=== PATIENT | male | born 1940 | race Caucasian/White ===

== ENCOUNTER 2017-01-20 22:27 | Emergency (ER) | payer BC, MEDICARE ==
[~2017-01-20] VITALS: Ht 165.1 cm; Wt 85.9 kg
[~2017-01-20 22:27] MED LIST: ASPI81TA85 PO; CELE1CAP7 PO; COUM1TAB17 PO; FLOM5CAP PO; HYDR25TAB PO; LISI-538 PO; OMEP20CA3 PO; PERC5TAB12 PO; PERCOCET PO; SIMV20TA2 PO; TRAM37.53 PO; TYLE325T5 PO; VITA100072 PO
[2017-01-20] MEDS ORDERED: AMLO25TA PO (22:42)
[2017-01-20] MEDS ORDERED: TRAM37.53 PO (22:42)
[2017-01-20 23:59] LABS: ANION GAP 7 MEQ/L (8-16); BLOOD UREA NITROGEN 33 MG/DL (7-18); CALCIUM LEVEL 8.6 MG/DL (8.8-10.2); CARBON DIOXIDE LEVEL 28 MEQ/L (21-32); CHLORIDE LEVEL 108 MEQ/L (98-107); CREATININE FOR GFR 1.65 MG/DL (0.70-1.30); GLOMERULAR FILTRATION RATE 43.4 (>42); GLUCOSE, FASTING 117 MG/DL (83-110); MAGNESIUM LEVEL 2.2 MG/DL (1.8-2.4); POTASSIUM SERUM 4.2 MEQ/L (3.5-5.1); SODIUM LEVEL 143 MEQ/L (136-145)
[2017-01-21 00:12] LABS: MEAN CORPUSCULAR HEMOGLOBIN 31.5 pg (27.0-33.0); MEAN CORPUSCULAR HGB CONC 33.5 g/dl (32.0-36.5); MEAN CORPUSCULAR VOLUME 93.9 fl (80.0-96.0); PLATELET COUNT, AUTOMATED 221 10^3/uL (150-450); RED CELL DISTRIBUTION WIDTH 12.3 % (11.5-14.5); WHITE BLOOD COUNT 6.9 10^3/uL (4.0-10.0)
[2017-01-21 00:35] VITALS: BP 157/74
--- NOTE | 2017-01-21 02:13 | ECGEPIP ---
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
--- NOTE | 2017-01-21 09:20 | REP ---
Clinical: Chest pain and palpitations . Comparison: 11/07/2015 . Findings: The mediastinum and cardiac silhouette are stable and within normal limits for portable technique. The lung lopez are clear without acute consolidation, effusion, or pneumothorax. Skeletal structures are intact. Impression: No acute cardiopulmonary process appreciated. Signed by Shane Ahumada MD 01/21/2017 08:21 A
== END 2017-01-21 00:42 | disposition home or self-care (01) ==
LOC: M ED 22:27
DX: I49.1 Atrial premature depolarization (principal); N18.3 Chronic kidney disease, stage 3 (moderate); I12.9 Hypertensive chronic kidney disease with stage 1 through stage 4 chronic kidney disease, or unspecified chronic kidney disease; E78.4 Other hyperlipidemia

== ENCOUNTER → 2017-01-27 | Outpatient (REF) | payer BC ==
[~2017-01-27] MED LIST changes: +AMLO25TA PO
== END ==
LOC: M SMT 12:57
PROVIDERS: ATTEND Urology
DX: N40.1 Benign prostatic hyperplasia with lower urinary tract symptoms (principal)

== ENCOUNTER → 2018-06-30 | Outpatient (CLI) | payer MEDICARE ==
[~2018-06-30] MED LIST changes: +FLOM0.4C39 PO; -FLOM5CAP PO; +HYDR-2541 PO; -HYDR25TAB PO; +VITA100018 PO; -VITA100072 PO
--- NOTE | 2018-06-30 15:14 | PFTRPT ---
Site: 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 IVC is less than 85% of VC. DLCO may be underestimated. Review Status: Not Reviewed Pre-Bronch Post-Bronch Pred Actual %Pred Actual %Chng SPIROMETRY FVC (L) 3.54 2.66 75 FEV1 (L) 2.52 1.84 73 FEV1/FVC (%) 72 69 96 FEF 25% (L/sec) 6.61 3.95 59 FEF 50% (L/sec) 3.98 1.57 39 FEF 75% (L/sec) 0.94 0.43 45 FEF 25-75% (L/sec) 1.76 1.11 62 FEF Max (L/sec) 6.72 5.63 83 FIVC (L) 2.71 FIF 50% (L/sec) 4.25 2.51 58 FIF Max (L/sec) 3.16 MVV (L/min) 106 55 51 Expiratory Time (sec) 8.54 Back Extrap Vol (L) 0.06 Time To FEFmax (sec) 0.067 LUNG VOLUMES SVC (L) 3.92 3.17 80 IC (L) 2.96 2.45 82 ERV (L) 0.96 0.71 74 TGV (L) 3.38 3.27 96 RV (Pleth) (L) 2.42 2.56 105 TLC (Pleth) (L) 6.34 5.72 90 RV/TLC (Pleth) (%) 38 45 117 DIFFUSION DLCOunc (ml/min/mmHg) 22.86 12.42 54 DL/VA (ml/min/mmHg/L) 3.61 2.77 76 VA (L) 6.34 4.48 70 BHT (sec) 10.29 IVC (L) 2.48 TLC (SB) (L) 4.63 AIRWAYS RESISTANCE Raw (cmH2O/L/s) 1.45 1.48 102 Gaw (L/s/cmH2O) 1.03 0.69 66 sRaw (cmH2O*s) 4.76 5.27 110 sGaw (1/cmH2O*s) 0.20 0.19 96
== END ==
LOC: M CARPUL 12:27
PROVIDERS: ATTEND Thoracic Surgery (Cardiothoracic Vascular Surgery)
DX: R91.8 Other nonspecific abnormal finding of lung field (principal)

== ENCOUNTER → 2018-08-04 | Outpatient (CLI) | payer MEDICARE ==
[~2018-08-04] MED LIST changes: +ASPI81TA33 PO; +PRESCAP PO
--- NOTE | 2018-08-06 08:52 | RADONC ---
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 STAGE: Stage I A2, [id number]. ECOG PERFORMANCE STATUS: 0. CONSULTATION: Mr. 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 HISTORY OF PRESENT ILLNESS: The patient was in his usual state of health but apparently developed some bronchitis or pneumonia, at which time a chest x-ray was done that showed an abnormality in the patient's right lower lobe. Subsequent CT scan done 05/31/2018 showed a 1.9 cm x 1.7 cm irregular nodule in the right lower lobe. PET CT scan done 06/07/2018 confirmed a 1.9 cm x 1.7 cm nodule with irregular margins. This demonstrated mild uptake of radio tracer with an SUV value of 1.9. This was thought to represent either chronic inflammation or low grade malignancy. On 07/15/2018, the patient underwent a CT-guided biopsy and pathology revealed a non-small cell lung carcinoma compatible with a squamous cell carcinoma with possible minor adenocarcinoma component. The patient was seen by Dr. Laz Curran, thoracic surgeon, for discussion of his therapeutic options. Dr. Curran did offer this patient a lobectomy and quite early explained the various options to him. He is now being referred to me for discussion of external beam radiation therapy with SBRT. PAST MEDICAL HISTORY: The patient's past medical history is positive for arthritis and hypertension, as well as GERD. He has had both knees replaced, as well as a colon resection and hernia repair. ALLERGIES: The patient is allergic to AUGMENTIN, HYDROCODONE, LEVAQUIN, ULTRAM and ERYTHROMYCIN. SOCIAL HISTORY: The patient's social history is positive for a 40 pack-year smoking history, having smoked two packs of cigarettes per day for 20 years. He quit 1986. He has stopped drinking in 1987. FAMILY HISTORY: The patient's family history is positive for father with prostate cancer. REVIEW OF SYSTEMS: The patient's review of systems is positive for some shortness of breath, as well as hearing loss. It is otherwise noncontributory. Denies nausea, vomiting, fevers, chills, night sweats, diplopia, headaches, anxiety or depression, anorexia, weight loss, visual disturbances, chest pain, urinary or bowel difficulties, bone pain, or neurological problems. PHYSICAL EXAMINATION: The patient is a well-developed, well-nourished male in no acute distress. HEENT exam is normocephalic, atraumatic. Extraocular movements are intact. There is no palpable cervical, supraclavicular, infraclavicular, axillary, or inguinal lymphadenopathy present. Lungs are clear to auscultation and percussion. Heart has a regular rate and rhythm. Abdomen is benign with no hepatosplenomegaly, masses, or tenderness. Skeletal examination reveals no tenderness to pressure or percussion of the bony skeleton. Extremities reveal no clubbing, cyanosis, or edema. Neurologic exam is grossly intact, as is the remainder of the physical examination. ASSESSMENT: I had a very lengthy discussion with this patient in regards to his therapeutic options. We discussed in detail the potential benefits, as well as possible acute and chronic sequelae of external beam radiation therapy. We discussed logistics of treatment planning, simulation and subsequent fractionated daily radiation treatments. I discussed the benefits and drawbacks of his two main therapeutic interventions, one being surgical resection with lumpectomy versus external beam radiation therapy with SBRT. After a very lengthy discussion, I did ask him the recommendations and discussions as discussed by Dr. Curran and I reported that I remained in total agreement with everything his thoracic surgeon has told him. After long discussion, the patient and his family have decided that he wishes to undergo SBRT rather than surgery. In light of this, I am referring him to the radiation oncologists at [facility]. We are not yet at this time set up to deliver SBRT in our institution. Thank you once again for allowing us to participate in the care of this very pleasant gentleman. If I could be of any further assistance or provide you with any information, please feel free to contact me at anytime. As always, warm regards, Vasyl Loredo MD cc: Laz uCrran MD
== END ==
LOC: M ONCR 12:39
PROVIDERS: ATTEND Radiology Radiation Oncology
DX: C34.31 Malignant neoplasm of lower lobe, right bronchus or lung (principal)

== ENCOUNTER → 2018-11-29 | Outpatient (REF) | payer MEDICARE, BC ==
[~2018-11-29] MED LIST changes: -OMEP20CA3 PO; +OMEP20CA4 PO
[2018-11-29 13:52] LABS: ALBUMIN 3.9 GM/DL (3.2-5.2); CALCIUM LEVEL 9.2 MG/DL (8.8-10.2); CREATININE FOR GFR 1.49 MG/DL (0.70-1.30); GLOMERULAR FILTRATION RATE 48.6 (>42); PHOSPHORUS LEVEL 3.1 MG/DL (2.5-4.9); POTASSIUM SERUM 5.6 MEQ/L (3.5-5.1)
== END ==
LOC: M LABDRWAD 12:11
PROVIDERS: ATTEND Internal Medicine Cardiovascular Disease
DX: I10 Essential (primary) hypertension (principal); Z79.899 Other long term (current) drug therapy; Z79.82 Long term (current) use of aspirin

== ENCOUNTER → 2018-12-06 | Outpatient (REF) | payer MEDICARE, BC ==
[2018-12-06 14:42] LABS: ALBUMIN 3.9 GM/DL (3.2-5.2); CALCIUM LEVEL 8.7 MG/DL (8.8-10.2); CREATININE FOR GFR 1.52 MG/DL (0.70-1.30); GLOMERULAR FILTRATION RATE 47.5 (>42); PHOSPHORUS LEVEL 2.6 MG/DL (2.5-4.9); POTASSIUM SERUM 4.8 MEQ/L (3.5-5.1)
== END ==
LOC: M LABDRWAD 12:58
PROVIDERS: ATTEND Internal Medicine Cardiovascular Disease
DX: E78.5 Hyperlipidemia, unspecified (principal); N19 Unspecified kidney failure

== ENCOUNTER 2020-06-19 16:11 | Emergency (ER) | payer MEDICARE, BC ==
[~2020-06-19] VITALS: Ht 162.6 cm; Wt 80.6 kg
[~2020-06-19 16:11] MED LIST changes: -ASPI81TA85 PO; +ASPI81TA86 PO; -LISI-538 PO; +LISI20TA33 PO; +OMEP1CAP73 PO; -OMEP20CA4 PO; -SIMV20TA2 PO; +SIMV20TA22 PO
--- NOTE | 2020-06-19 16:41 | REP ---
INDICATION: CHEST PAIN. COMPARISON: 01/20/2017 also portable TECHNIQUE: Portable FINDINGS: The technique utilized in obtaining the radiograph has magnified the cardiac silhouette and accentuated the interstitial markings. The superior mediastinal structures are midline. The cardiac silhouette is within normal limits.. The diaphragmatic surfaces of the lungs are regular, and the costophrenic angles are clear. The pulmonary loepz are clear and unchanged.. The imaged osseous structures are intact. IMPRESSION: There is no acute cardiopulmonary disease. <Electronically signed by Oscar Joy > 06/19/20 [id number]
[2020-06-19 16:47] LABS: HEMATOCRIT 32.8 % (42.0-52.0); LYMPH # 0.6 10^3/uL (1.5-5.0); LYMPH % 4.8 % (24.0-44.0); MEAN CORPUSCULAR HEMOGLOBIN 32.2 pg (27.0-33.0); MEAN CORPUSCULAR HGB CONC 33.5 g/dl (32.0-36.5); MEAN CORPUSCULAR VOLUME 95.9 fl (80.0-96.0); MONO # 0.6 10^3/uL (0.0-0.8); MONO % 5.4 % (2.0-8.0); NEUTROPHILS # 10.4 10^3/uL (1.5-8.5); NEUTROPHILS % 89.2 % (36.0-66.0); PLATELET COUNT, AUTOMATED 237 10^3/uL (150-450); RED BLOOD COUNT 3.42 10^6/uL (4.30-6.10); WHITE BLOOD COUNT 11.6 10^3/uL (4.0-10.0)
[2020-06-19] MEDS ORDERED: CHLO125TA (16:47)
[2020-06-19] MEDS ORDERED: SPIR-10 (16:47)
[2020-06-19 17:20] LABS: ALBUMIN 4.3 GM/DL (3.2-5.2); ALT/SGPT 23 U/L (12-78); BILIRUBIN,DIRECT 0.1 MG/DL (0.0-0.2); BILIRUBIN,TOTAL 0.3 MG/DL (0.2-1.0); BLOOD UREA NITROGEN 37 MG/DL (7-18); CALCIUM LEVEL 9.6 MG/DL (8.8-10.2); CARBON DIOXIDE LEVEL 24 MEQ/L (21-32); CHLORIDE LEVEL 105 MEQ/L (98-107); CK-MB VALUE MASS 4.7 NG/ML (<3.6); CPK CREATINE PHOSPHOKINASE 203 U/L (39-308); CREATININE FOR GFR 1.86 MG/DL (0.70-1.30); GLOMERULAR FILTRATION RATE 37.5 (>42); GLUCOSE, FASTING 185 MG/DL (70-100); MB/CK RELATIVE INDEX 2.32 (< OR =4); POTASSIUM SERUM 4.3 MEQ/L (3.5-5.1); SODIUM LEVEL 138 MEQ/L (136-145); TOTAL PROTEIN 7.1 GM/DL (6.4-8.2); TROPONIN I < 0.02 NG/ML (< 0.10)
[2020-06-19 17:54] LABS: MAGNESIUM LEVEL 2.7 MG/DL (1.8-2.4); THYROID STIMULATING HORMONE 0.735 uIU/ML (0.358-3.740)
[2020-06-19 19:55] LABS: CK-MB VALUE MASS 4.5 NG/ML (<3.6); CPK CREATINE PHOSPHOKINASE 206 U/L (39-308); MB/CK RELATIVE INDEX 2.18 (< OR =4); TROPONIN I < 0.02 NG/ML (< 0.10)
[2020-06-19 21:17] VITALS: BP 155/70
--- NOTE | 2020-06-19 23:12 | ECGEPIP ---
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
--- NOTE | 2020-06-19 23:17 | ECGEPIP ---
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
== END 2020-06-19 21:18 | disposition home or self-care (01) ==
LOC: M ED 16:11
DX: R07.89 Other chest pain (principal); R00.2 Palpitations; I10 Essential (primary) hypertension; E78.5 Hyperlipidemia, unspecified; I25.10 Atherosclerotic heart disease of native coronary artery without angina pectoris; N40.0 Benign prostatic hyperplasia without lower urinary tract symptoms; K21.9 Gastro-esophageal reflux disease without esophagitis; G47.33 Obstructive sleep apnea (adult) (pediatric); I44.0 Atrioventricular block, first degree; I45.10 Unspecified right bundle-branch block; Z79.899 Other long term (current) drug therapy; Z79.82 Long term (current) use of aspirin; Z87.891 Personal history of nicotine dependence

== ENCOUNTER → 2020-06-28 | Outpatient (CLI) | payer MEDICARE ==
[~2020-06-28] MED LIST changes: +CHLO125TA; +SPIR-10
--- NOTE | 2020-06-28 16:05 | REP ---
INDICATION: URINARY FREQ ENLARGED PROSTATE. COMPARISON: None. TECHNIQUE: Real-time sonographic evaluation of the kidneys is performed. FINDINGS: Renal cortical echogenicity pattern is normal bilaterally and contours are smooth. There is no hydronephrosis. There are multiple bilateral simple cysts of the kidneys. The largest on the right is in the upper aspect 1.7 cm in diameter, the largest on the left is in the upper pole 2.6 x 2.6 x 3.1 cm. No large renal calcifications are seen. The right kidney measures 10.6 x 4.8 x 5.0 cm. Left renal dimensions are 10.3 x 3.9 x 5.1 cm. IMPRESSION: No hydronephrosis. Bilateral simple cysts of the kidneys as discussed above. <Electronically signed by Vasyl Benito > 06/28/20 [id number]
--- NOTE | 2020-06-28 16:07 | REP ---
INDICATION: URINARY FREQ ENLARGED PROSTATE. COMPARISON: None. TECHNIQUE: Real-time sonographic evaluation of urinary bladder performed. FINDINGS: Bladder measures 6.3 x 6.4 x 4.1 cm, total volume 86 cc. Postvoid residual is 19 cc. Prostate measures 4.7 x 3.6 x 4.5 cm, total volume 40 cc. No bladder wall mass or thickening is seen. No bladder calculus is seen. There are bilateral ureteral jets in the urinary bladder with Doppler color evaluation. IMPRESSION: Essentially unremarkable bladder ultrasound as discussed above. Mild postvoid residual. <Electronically signed by Vasyl Benito > 06/28/20 [id number]
== END ==
LOC: M RAD 14:11
PROVIDERS: ATTEND Family Medicine
DX: N28.1 Cyst of kidney, acquired (principal)

== ENCOUNTER → 2021-02-26 | Outpatient (CLI) | payer MEDICARE ==
--- NOTE | 2021-02-26 11:38 | REP ---
INDICATION: RT LOW LOBE LUNG CA COMPARISON: Multiple the latest 04/23/2020 also without contrast TECHNIQUE: Standard helical technique without contrast FINDINGS: The mediastinum and pulmonary maddy are unchanged. There is no mass or adenopathy. There are no pleural or pericardial effusions. There is no change in the imaged upper abdomen or imaged osseous structures. Evaluation of the lung lopez shows right lower lobe postop changes status quo. No new abnormal nodules, masses, or opacities have developed. There is minimal stable cylindrical bronchiectasis. IMPRESSION: Stable CT examination of the chest. No acute abnormality is noted. <Electronically signed by Oscar Joy > 02/26/21 [id number]
== END ==
LOC: M RAD 10:54
PROVIDERS: ATTEND Radiology Radiation Oncology
DX: C34.31 Malignant neoplasm of lower lobe, right bronchus or lung (principal)

== ENCOUNTER → 2021-11-28 | Outpatient (CLI) | payer MEDICARE | LOC: M RAD 07:46 | PROVIDERS: ATTEND Physician Assistant Surgical | DX: M47.896 Other spondylosis, lumbar region (principal); M51.36 Other intervertebral disc degeneration, lumbar region ==

== ENCOUNTER → 2021-12-03 | Outpatient (CLI) | payer MEDICARE | LOC: M RAD 11:08 | PROVIDERS: ATTEND Radiology Radiation Oncology | DX: C34.31 Malignant neoplasm of lower lobe, right bronchus or lung (principal) ==

== ENCOUNTER → 2021-12-31 | Outpatient (CLI) | payer MEDICARE ==
[2021-12-31 14:21] LABS: PLATELET COUNT, AUTOMATED 223 10^3/uL (150-450)
[2021-12-31 14:56] LABS: PARTIAL THROMBOPLASTIN TIME 28.1 SECONDS (24.8-34.2)
[2021-12-31 15:41] LABS: INR 1.06; PROTHROMBIN TIME 14.1 SECONDS (12.5-14.5)
== END ==
LOC: M LAB 13:21
PROVIDERS: ATTEND Physician Assistant Surgical
DX: M43.16 Spondylolisthesis, lumbar region (principal); Z79.899 Other long term (current) drug therapy

== ENCOUNTER → 2022-12-02 | Outpatient (CLI) | payer MEDICARE ==
[~2022-12-02] MED LIST changes: -CELE1CAP7 PO; +CELE1CAP99 PO
== END ==
LOC: M PLAIMG 11:02
PROVIDERS: ATTEND Radiology Radiation Oncology
DX: C34.90 Malignant neoplasm of unspecified part of unspecified bronchus or lung (principal)

== ENCOUNTER → 2023-01-13 | Outpatient (CLI) | payer MEDICARE | LOC: M RAD 11:31 | PROVIDERS: ATTEND Family Medicine | DX: I65.29 Occlusion and stenosis of unspecified carotid artery (principal) ==

== ENCOUNTER → 2023-10-14 | Outpatient (CLI) | payer MEDICARE ==
[~2023-10-14] MED LIST changes: +AMLO1TAB25 PO; +ATOR1TAB19 PO; -CHLO125TA; +CHLO125TA PO; +LOSA100T46 PO; +META58.68 PO; +OXYB-54 PO; +PRES1CAP PO; -SPIR-10; +SPIR-10 PO; +TAMS1CAP17 PO; +TRAM1TAB42 PO; -TRAM37.53 PO; +VITA100093 PO
== END ==
LOC: M PLAIMG 10:33
PROVIDERS: ATTEND Physician Assistant
DX: I35.1 Nonrheumatic aortic (valve) insufficiency (principal); I77.810 Thoracic aortic ectasia

== ENCOUNTER → 2023-10-14 | Outpatient (CLI) | payer MEDICARE | LOC: M EKG 11:50 | PROVIDERS: ATTEND Physician Assistant | DX: I49.5 Sick sinus syndrome (principal); I44.1 Atrioventricular block, second degree ==

== ENCOUNTER → 2023-11-03 | Outpatient (CLI) | payer MEDICARE ==
[2023-11-03 13:15] LABS: HEMATOCRIT 30.6 % (42.0-52.0); HEMOGLOBIN 10.1 g/dl (13.5-17.5); MEAN CORPUSCULAR HEMOGLOBIN 32.4 pg (27.0-33.0); MEAN CORPUSCULAR VOLUME 98.1 fl (80.0-96.0); PLATELET COUNT, AUTOMATED 218 10^3/uL (150-450); RED BLOOD COUNT 3.12 10^6/uL (4.30-6.10); WHITE BLOOD COUNT 7.5 10^3/uL (4.0-10.0)
[2023-11-03 13:44] LABS: CALCIUM LEVEL 9.6 MG/DL (8.3-10.6); CREATININE FOR GFR 1.76 MG/DL (0.70-1.30); GLOMERULAR FILTRATION RATE 39.6 (>35); POTASSIUM SERUM 5.2 MMOL/L (3.5-5.1)
== END ==
LOC: M PLALAB 10:59
PROVIDERS: ATTEND Physician Assistant
DX: I49.5 Sick sinus syndrome (principal)

== ENCOUNTER 2023-11-09 11:18 | Observation (INO) | payer MEDICARE ==
[~2023-11-09] VITALS: Ht 167.6 cm; Wt 72.7 kg
[2023-11-09] MEDS ORDERED: fentaNYL 100 MCG/2 ML INJECTION As Ordered ONE (13:52)
[2023-11-09] MEDS ORDERED: propofoL 500 MG/50 ML VIAL As Ordered ONE (13:52)
[2023-11-09] MEDS ORDERED: MIDAZOLAM INJ 2MG/2ML VIAL As Ordered ONE (13:55)
[2023-11-09] MEDS: ceFAZolin SOD 2 GM in IV 1 EA IV ONE (14:20)
[2023-11-09] MEDS: LIDOCAINE 1% SDV 30ML VIAL As Ordered ONE (15:41)
[2023-11-09] MEDS: ISOVUE-300 61% 100ML VIAL As Ordered ONE (15:42)
[2023-11-09] MEDS: AMIODARONE HCL 360 MG/200 ML PREMIXED BAG (NEXTERONE) As Ordered ONE (15:44)
[2023-11-09] MEDS ORDERED: ONDANSETRON 4MG 2ML VIAL IV PRN (16:00)
[2023-11-09] MEDS ORDERED: METOCLOPRAMIDE INJ 10MG/2ML VIAL IV PRN (16:00)
[2023-11-09] MEDS ORDERED: diphenhydrAMINE 50MG/ML VIAL IV PRN (16:00)
[2023-11-09 17:15] VITALS: BP 198/81; TEMP 97.6; O2SAT 97
[2023-11-09] MEDS: ACETAMINOPHEN TAB 650MG DOSE (2X325MG) PO PRN (18:40)
[2023-11-09 19:52] VITALS: BP 192/83; TEMP 98.1; O2SAT 94
[2023-11-09] MEDS: NS 1,000 ML IV SCH (20:10)
[2023-11-09 20:12] VITALS: BP 190/70
[2023-11-09] MEDS: ATORVASTATIN 10 MG TAB PO SCH (20:14)
[2023-11-09] MEDS: LOSARTAN 50MG TABLET PO SCH (20:14)
[2023-11-09] MEDS: FUROSEMIDE 20MG/2ML VIAL IV ONE (20:33)
[2023-11-09 21:04] VITALS: BP 178/81; TEMP 98.7; O2SAT 95
[2023-11-09] MEDS: ceFAZolin SOD 1 GM in D5W MINI-BAG PLUS 50 ML IV SCH (22:29)
[2023-11-09 22:41] VITALS: BP 173/74; TEMP 99.1; O2SAT 97
[2023-11-09 23:52] VITALS: BP 168/75; TEMP 98.9; O2SAT 96
[2023-11-10] MEDS: traMADol 50 MG TAB PO PRN (00:05)
[2023-11-10 03:26] VITALS: BP 162/72; TEMP 98.8; O2SAT 95
[2023-11-10 08:00] VITALS: BP 178/81; TEMP 98.1; O2SAT 96
[2023-11-10] MEDS: SPIRONOLACTONE 12.5MG PER 1/2 TABLET PO SCH (08:19)
[2023-11-10] MEDS: oxyBUTYnin 5 MG TAB PO SCH (08:20)
[2023-11-10] MEDS: TAMSULOSIN 0.4 MG CAP PO SCH (08:20)
[2023-11-10] MEDS: CHLORTHALIDONE 12.5MG PER 1/2 TABLET PO SCH (08:20)
[2023-11-10 08:21] VITALS: BP 178/81
[2023-11-10 09:57] LABS: HEMATOCRIT 28.8 % (42.0-52.0); HEMOGLOBIN 9.6 g/dl (13.5-17.5); MEAN CORPUSCULAR HEMOGLOBIN 32.3 pg (27.0-33.0); MEAN CORPUSCULAR HGB CONC 33.3 g/dl (32.0-36.5); PLATELET COUNT, AUTOMATED 196 10^3/uL (150-450); RED BLOOD COUNT 2.97 10^6/uL (4.30-6.10)
[2023-11-10 12:00] VITALS: BP 172/72; TEMP 98.7; O2SAT 95
== END 2023-11-10 14:37 | disposition home or self-care (01) ==
LOC: M SDC 11:18 → M ICU 17:03
PROVIDERS: ADMIT Internal Medicine Cardiovascular Disease; ATTEND Internal Medicine Cardiovascular Disease
DX: I49.5 Sick sinus syndrome (principal); I44.1 Atrioventricular block, second degree; I45.10 Unspecified right bundle-branch block; J98.9 Respiratory disorder, unspecified; Z88.0 Allergy status to penicillin; Z88.1 Allergy status to other antibiotic agents; Z88.5 Allergy status to narcotic agent; Z79.899 Other long term (current) drug therapy
CPT/HCPCS: 33208; 36415; 71045; 76000; 85027; 93005; 96365; 96375; 96376; C1785; C1898; G0378; J0690; J1940; J2250; J3010; Q9967

== ENCOUNTER → 2023-12-10 | Outpatient (CLI) | payer MEDICARE | LOC: M RAD 13:02 | PROVIDERS: ATTEND Radiology Radiation Oncology | DX: C34.31 Malignant neoplasm of lower lobe, right bronchus or lung (principal) ==

== ENCOUNTER → 2024-01-11 | Outpatient (REF) | payer MEDICARE ==
[2024-01-11 14:31] LABS: APPEARANCE, URINE CLEAR (CLEAR); BACTERIA, URINE AUTO NEGATIVE (NEGATIVE); BILIRUBIN, URINE AUTO NEGATIVE (NEGATIVE); BLOOD, URINE BLOOD NEGATIVE (NEGATIVE); COLOR, URINE STRAW (YELLOW); GLUCOSE, URINE (UA) AUTO NEGATIVE (NEGATIVE); KETONE, URINE AUTO NEGATIVE (NEGATIVE); LEUKOCYTE ESTERASE, URINE AUTO NEGATIVE (NEGATIVE); NITRITE, URINE AUTO NEGATIVE (NEGATIVE); PROTEIN, URINE AUTO 2+ mg/dL (NEGATIVE); RBC, URINE AUTO 2 /HPF (0-3); SPECIFIC GRAVITY URINE AUTO 1.009 (1.002-1.035); SQUAMOUS EPITHELIAL CELL UR AU 0 /HPF (0-6); UROBILINOGEN, URINE AUTO 0.2 mg/dL (0.0-2.0); WBC, URINE AUTO 0 /HPF (0-3)
== END ==
LOC: M SMT 12:42
PROVIDERS: ATTEND Physician Assistant
DX: R33.9 Retention of urine, unspecified (principal)

== ENCOUNTER 2024-01-18 01:21 | Emergency (ER) | payer MEDICARE ==
[~2024-01-18] VITALS: Ht 162.6 cm; Wt 76.4 kg
[2024-01-18 01:22] VITALS: O2SAT 94
[2024-01-18 03:04] VITALS: BP 142/86; TEMP 98.8
== END 2024-01-18 03:06 | disposition home or self-care (01) ==
LOC: M ED 01:21
DX: R33.9 Retention of urine, unspecified (principal); I25.119 Atherosclerotic heart disease of native coronary artery with unspecified angina pectoris; I10 Essential (primary) hypertension; K21.9 Gastro-esophageal reflux disease without esophagitis; E78.5 Hyperlipidemia, unspecified; Z85.118 Personal history of other malignant neoplasm of bronchus and lung; Z88.1 Allergy status to other antibiotic agents; Z88.5 Allergy status to narcotic agent; Z79.1 Long term (current) use of non-steroidal anti-inflammatories (NSAID); Z79.899 Other long term (current) drug therapy

== ENCOUNTER 2024-01-19 20:15 | Emergency (ER) | payer MEDICARE ==
[~2024-01-19] VITALS: Ht 167.6 cm; Wt 76.4 kg
[2024-01-19] MEDS: oxyBUTYnin 5 MG TAB PO ONE (22:21)
[2024-01-19 22:23] VITALS: BP 181/75; TEMP 97.1; O2SAT 96
== END 2024-01-19 22:44 | disposition home or self-care (01) ==
LOC: M ED 20:15
DX: N32.89 Other specified disorders of bladder (principal); I25.119 Atherosclerotic heart disease of native coronary artery with unspecified angina pectoris; I10 Essential (primary) hypertension; E78.5 Hyperlipidemia, unspecified; K21.9 Gastro-esophageal reflux disease without esophagitis; N40.0 Benign prostatic hyperplasia without lower urinary tract symptoms; Z88.1 Allergy status to other antibiotic agents; Z88.5 Allergy status to narcotic agent; Z88.8 Allergy status to other drugs, medicaments and biological substances; Z79.1 Long term (current) use of non-steroidal anti-inflammatories (NSAID); Z79.899 Other long term (current) drug therapy

== ENCOUNTER → 2024-01-25 | Outpatient (CLI) | payer MEDICARE | LOC: M RAD 12:10 | PROVIDERS: ATTEND Family Medicine | DX: N18.9 Chronic kidney disease, unspecified (principal); N28.1 Cyst of kidney, acquired; N40.0 Benign prostatic hyperplasia without lower urinary tract symptoms ==

== ENCOUNTER → 2024-10-31 | Outpatient (REF) | payer MEDICARE ==
[~2024-10-31] MED LIST changes: -FLOM0.4C39 PO; +TAMS-18 PO
[2024-10-31 18:51] LABS: IRON (FE) 64.0 UG/DL (65-175); PERCENT SATURATION 26.1 % (19.7-50.0)
== END ==
LOC: M LAB REF 17:50
PROVIDERS: ATTEND Internal Medicine Nephrology
DX: D50.9 Iron deficiency anemia, unspecified (principal); R80.9 Proteinuria, unspecified; I12.9 Hypertensive chronic kidney disease with stage 1 through stage 4 chronic kidney disease, or unspecified chronic kidney disease

== ENCOUNTER → 2024-11-30 | Outpatient (CLI) | payer MEDICARE | LOC: M RAD 09:11 | PROVIDERS: ATTEND Internal Medicine Nephrology | DX: I70.1 Atherosclerosis of renal artery (principal); R33.9 Retention of urine, unspecified; N18.32 Chronic kidney disease, stage 3b; N28.1 Cyst of kidney, acquired ==

== ENCOUNTER → 2024-12-05 | Outpatient (CLI) | payer MEDICARE | LOC: M RAD 10:41 | PROVIDERS: ATTEND Radiology Radiation Oncology | DX: C34.31 Malignant neoplasm of lower lobe, right bronchus or lung (principal) ==